=== PATIENT | male | born 1990 | race Hispanic/Latino ===

== ENCOUNTER 2018-01-03 08:12 | Emergency (ER) | payer BC ==
[2018-01-03 08:31] VITALS: RESP 18; TEMP 97; O2SAT 99
--- NOTE | 2018-01-03 09:05 | ED PDOC ---
Lower Extremity Pain/Injury Time Seen by Provider: 01/03/18 08:37 Chief Complaint (Nursing): Lower Extremity Problem/Injury Chief Complaint (Provider): left heel laceration History Per: Patient History/Exam Limitations: no limitations Onset/Duration Of Symptoms: Hrs (today) Current Symptoms Are (Timing): Still Present Additional Complaint(s): Vinny Barron is a 27 year old male, with no significant past medical history, who presents to the emergency department for a left heel laceration onset today. Patient reports he was walking down the stairs when the back of his heel hit the metal steps. Patient is not up to date with tetanus shot. He denies any other injuries or medical complaints. PMD: None provided. - Ankle/Foot Description Of Injury: Laceration Past Medical History Reviewed: Historical Data, Nursing Documentation, Vital Signs Vital Signs: Last Vital Signs Temp 97 F L 01/03/18 08:28 Pulse 76 01/03/18 08:28 Resp 18 01/03/18 08:28 BP 118/75 01/03/18 08:28 Pulse Ox 99 01/03/18 08:28 - Medical History PMH: No Chronic Diseases - Surgical History Surgical History: No Surg Hx - Family History Family History: States: Unknown Family Hx - Social History Current smoker - smoking cessation education provided: No Alcohol: Social Drugs: Denies - Home Medications Home Medications: Ambulatory Orders Medication Instructions Recorded Cephalexin [cephalexin] 500 mg PO BID #20 cap 01/03/18 No Known Home Med 01/03/18 - Allergies Allergies/Adverse Reactions: Allergies Allergy/AdvReac Type Severity Reaction Status Date / Time No Known Allergies Allergy Verified 01/03/18 08:27 Review of Systems Musculoskeletal: Positive for: Leg Pain (heel laceration) Physical Exam - Reviewed Nursing Documentation Reviewed: Yes Vital Signs Reviewed: Yes - Physical Exam Appears: Positive for: Well, Non-toxic, No Acute Distress Head Exam: Positive for: ATRAUMATIC, NORMAL INSPECTION, NORMOCEPHALIC Skin: Positive for: Normal Color, Warm, Dry Eye Exam: Positive for: Normal appearance Neck: Positive for: Painless ROM Extremity: Positive for: Normal ROM (lower extremities), Other (7 cm laceration to left heel. Carney test normal. No motor/sensory deficits ). Negative for: Calf Tenderness, Deformity, Swelling Neurologic/Psych: Positive for: Alert, Oriented. Negative for: Motor/Sensory Deficits - ECG O2 Sat by Pulse Oximetry: 99 (RA) Pulse Ox Interpretation: Normal Medical Decision Making Medical Decision Making: Initial Impression: heel laceration Initial Plan: --Adacel 0.5 ml IM --Reevaluation 09:05 -Spoke with podiatry who will come see the patient for evaluation Scribe Attestation: Documented by Matt Bailey, acting as a scribe for Radha Kaye MD Provider Scribe Attestation: All medical record entries made by the Scribe were at my direction and personally dictated by me. I have reviewed the chart and agree that the record accurately reflects my personal performance of the history, physical exam, medical decision making, and the department course for this patient. I have also personally directed, reviewed, and agree with the discharge instructions and disposition. patient seen by podiatry. wound examined and closed by resident. patient placed on non-weight bearing status with crutches. Patient to followup with Dr. Kilpatrick. Disposition - Clinical Impression Clinical Impression: Laceration of ankle - Patient ED Disposition Is Patient to be Admitted: No Doctor Will See Patient In The: Office Counseled Patient/Family Regarding: Diagnosis, Need For Followup, Rx Given - Disposition Referrals: Dominik Kilpatrick MD [Staff Provider] - [facility] [place] [Outside] Disposition: Routine/Home Disposition Time: 10:45 Condition: IMPROVED Prescriptions: Cephalexin [cephalexin] 500 mg PO BID #20 cap Forms: [facility] ([place]), [facility] ED School/Work Excuse - POA Present On Arrival: Falls Or Trauma
[2018-01-03] MEDS ORDERED: Tdap Vaccine 0.5 ml Vial (10-64 yrs) IM ONE (09:08)
[2018-01-03] MEDS ORDERED: Lidocaine 1% Inj (20ml) SC ONE (09:50)
[2018-01-03] MEDS ORDERED: Povidone Iodine Topical 10% Sol ONE (09:53)
[2018-01-03] MEDS ORDERED: Lidocaine Hydrochloride 1% 10 ML ONE ×2 (10:01→10:14)
--- NOTE | 2018-01-03 10:59 | CP.PCM.CON ---
History of Present Illness - History of Present Illness History of Present Illness: 27 y/o male with no significant PMHx seen and examined in ED after consultation for left ankle laceration. He states he slipped down a spiral staircase and the skin got caught on a sharp edge. States he was able to walk just fine afterwards and still is, but noticed a deep cut to the back of the ankle which started bleeding. He was brought to the ED by his brother. States the laceration occurred approx 90 min ago. States he received tetanus upon arrival to the ED. Denies F/C/N/V/CP/SOB PSHx: none All: NKDA SocHx: social EtOH; denies cigarette or illicit drug use FamHx: noncontributory Review of Systems - Review of Systems All systems: reviewed and no additional remarkable complaints except (per HPI) Past Patient History - Infectious Disease Hx of Infectious Diseases: None - Past Social History Alcohol: Social Drugs: Denies - PSYCHIATRIC Hx Substance Use: No - SURGICAL HISTORY Hx Surgeries: No - ANESTHESIA Hx Anesthesia: No Meds Allergies/Adverse Reactions: Allergies Allergy/AdvReac Type Severity Reaction Status Date / Time No Known Allergies Allergy Verified 01/03/18 08:27 Physical Exam - Constitutional Appears: Well, Non-toxic, No Acute Distress - Extremities Exam Additional comments: LLE focused exam: Vasc: DP/PT pulses palpable 2/4. Temperature gradient warm to cool. Mild localized edema noted to posterior heel just proximal to Achilles tendon insertion. Derm: 7cm laceration noted to posterior heel extending down to the level of subcutaneous tissue. Sanguinous drainage noted with application of pressure. Mild brandon wound erythema noted. No purulence, no malodor, no fluctuance. Neuro: Protective sensation grossly intact Ortho: Mild tenderness to palpation of posterior heel and passive ankle joint dorsiflexion. Pt able to perform active and passive ankle ROM with no limitations. Carney test negative for Achilles injury. - Neurological Exam Neurological exam: Alert, Oriented x3 - Psychiatric Exam Psychiatric exam: Normal Affect, Normal Mood Results - Vital Signs Recent Vital Signs: Last Vital Signs Temp 97 F L 01/03/18 08:28 Pulse 76 01/03/18 08:28 Resp 18 01/03/18 08:28 BP 118/75 01/03/18 08:28 Pulse Ox 99 01/03/18 09:14 Assessment & Plan - Assessment and Plan (Free Text) Assessment: 27 y/o male with left posterior heel laceration secondary to trauma Plan: Pt seen and evaluated in ED Discussed with attending Dr. Kilpatrick Tetanus shot given in ED Wound copiously irrigated with betadine saline solution 16cc of 1% Lidocaine solution injected in local fashion to posterior L heel 3-0 Vicryl sutures utilized to close subcutaneous tissue 4-0 Nylon sutures utilized to reapproximate skin edges Pt tolerated procedure without incident Wound dressed with xeroform, DSD and NAOMIE bandage Pt dispensed surgical shoe and crutches and advised to remain NWB and keep his dressing clean/dry/intact Pt may shower with use of shower bag to cover his bandage Pt to follow up with Dr. Kilpatrick in his office within 1 week of hospital discharge Thank you for this consult
[2018-01-03 11:17] VITALS: BP 115/70; PULSE 70
== END 2018-01-03 11:17 | disposition home or self-care (01) ==
LOC: H.ER 08:12
DX: S91.312A Laceration without foreign body, left foot, initial encounter (principal); Z23 Encounter for immunization; W10.8XXA Fall (on) (from) other stairs and steps, initial encounter